=== PATIENT | female | born 1955 | race Caucasian/White ===

== ENCOUNTER 2016-05-05 10:58 | Emergency (ER) | payer BC, OTHER ==
[2016-05-05] MEDS ORDERED: Naproxen TAB* 250 MG PO ONE (11:20)
[2016-05-05] MEDS ORDERED: HYDROcodone/ACETAMIN 5-325 MG* 1 TAB PO ONE (11:37)
--- NOTE | 2016-05-05 12:40 | RAD ---
INDICATION: Fall. Traumatic fracture left wrist COMPARISON: None TECHNIQUE: AP, lateral, and oblique views were obtained. FINDINGS: There is a comminuted, impacted, and displaced intra-articular fracture of the distal radius with dorsal displacement of the carpus. There is soft tissue swelling with deformity. No additional significant findings. IMPRESSION: INTRA-ARTICULAR FRACTURE DISTAL RADIUS WITH IMPACTION, COMMINUTION, AND DORSAL DISPLACEMENT OF THE CARPUS.
--- NOTE | 2016-05-05 12:40 | RAD ---
INDICATION: Left arm injury COMPARISON: None TECHNIQUE: AP and lateral views were obtained. FINDINGS: The lateral radiograph demonstrates no fracture or joint effusion. The AP view is limited due to positioning. The patient has a displaced distal radial fracture. Follow-up imaging of the elbow can be performed if there is persistent concern when the patient is able to tolerate positioning. IMPRESSION: LIMITED STUDY NO ABNORMALITIES OF THE ELBOW SEEN ON THE LATERAL RADIOGRAPH.
--- NOTE | 2016-05-05 12:41 | RAD ---
INDICATION: Left hand pain. COMPARISON: Left wrist same date TECHNIQUE: 2 views are submitted. Positioning is limited as a result of the displaced radial fracture. FINDINGS: There is an intra-articular fracture distal radius described in separate report. There is no acute fracture about the hand. The fingers are held in flexion and therefore evaluation is somewhat limited. IMPRESSION: LIMITED EXAMINATION. NO FRACTURES ABOUT THE HAND. KNOWN DISTAL RADIAL FRACTURE DESCRIBED ELSEWHERE.
[2016-05-05] MEDS ORDERED: Ondansetron ODT TAB* 4 MG PO ONE (12:50)
--- NOTE | 2016-05-10 22:43 | UC ---
Sahra Collins Matthew, scribed for Eileen Palacio MD on 05/05/16 at 1202 . Hand/Wrist HPI - HPI Summary HPI Summary: A 61 y/o female presents to [facility] with left wrist pain after slipping on ice with an out stretched arm while hiking at 08:30 today. The pain is rated 10/10 in severity, described as sharp, and radiates to the hand and elbow. During the fall, the patient's fist was clenched and rolled outward to the side. The patient denies LOC. No pain elsewhere. Denies h/a, neck pain, abd pain, hip pain. No chest pain So abd discomfort Denies local paresthesias. - History Of Current Complaint Chief Complaint: UCUpperExtremity Stated Complaint: WRIST INJURY Time Seen by Provider: 05/05/16 11:36 Hx Obtained From: Patient ?: No Onset/Duration: Sudden Onset, Lasting Hours - 08:30, Still Present Severity Initially: Moderate Severity Currently: Moderate Pain Intensity: 10 Pain Scale Used: 0-10 Numeric Character Of Pain: Sharp Aggravating Factor(s): Movement Alleviating: Nothing - Allergies/Home Medications Allergies/Adverse Reactions: Allergies Allergy/AdvReac Type Severity Reaction Status Date / Time Meperidine [From Demerol HCl] Allergy See Comment Verified 01/01/16 17:39 PMH/Surg Hx/FS Hx/Imm Hx Previously Healthy: Yes Endocrine History Of: Denies: Diabetes Cardiovascular History Of: Denies: Hypertension Respiratory History Of: Reports: Asthma GI/ History Of: Denies: Renal Disease - Surgical History Surgical History: Yes Surgery Procedure, Year, and Place: T&A. hysterectomy. R knee scopy. breast biopsy- benign x2 - Family History Known Family History: Positive: Other - PFH: HTN. - Social History Alcohol Use: Occasionally Substance Use Type: None Smoking Status (MU): Never Smoked Tobacco Have You Smoked in the Last Year: No Review of Systems Constitutional: Negative Skin: Negative Eyes: Negative ENT: Negative Respiratory: Negative Cardiovascular: Negative Gastrointestinal: Negative Genitourinary: Negative Motor: Negative Neurovascular: Negative Musculoskeletal: Arthralgia - left wrist Neurological: Negative Psychological: Negative All Other Systems Reviewed And Are Negative: Yes Physical Exam Triage Information Reviewed: Yes Appearance: Well-Nourished, Pain Distress Vital Signs: Initial Vital Signs Temp 96.7 F 05/05/16 11:04 Resp 24 05/05/16 11:04 Vital Signs Reviewed: Yes Eye Exam: Normal ENT Exam: Normal Neck exam: Normal Respiratory Exam: Normal - No dyspnea; no tachypnea, normal respiratory rate Cardiovascular Exam: Normal - rad and ulcer pp left hand are palpable. + cr < 2 sec x 5 dig LH Cardiovascular: Positive: RRR, Pulses Normal, Brisk Capillary Refill Abdominal Exam: Normal Abdomen Description: Positive: No Organomegaly, Soft Bowel Sounds: Positive: Present Musculoskeletal Exam: Other - Left wrist with obvious deformity. Unable to straighten out elbow 2/2 pain in wrist. Pain does radiate to elbow and hand no neck tenderness Neurological Exam: Normal - non-focal, general grossly intact Distal sens x 5 digits Psychological Exam: Normal - conversing easily and approprately Skin Exam: Normal - no visible or reported rash see above Diagnostics - Radiology Left Hand XR Xray Interpretation: No Acute Changes - IMPRESSION: LIMITED EXAMINATION. NO FRACTURES ABOUT THE HAND. KNOWN DISTAL RADIAL FRACTURE DESCRIBED ELSEWHERE. Radiology Interpretation Completed By: Radiologist Left Elbow XR Xray Interpretation: No Acute Changes - IMPRESSION: LIMITED STUDY NO ABNORMALITIES OF THE ELBOW SEEN ON THE LATERAL RADIOGRAPH. Radiology Interpretation Completed By: Radiologist Left Wrist XR Xray Interpretation: Positive (See Comments) - IMPRESSION: INTRA-ARTICULAR FRACTURE DISTAL RADIUS WITH IMPACTION, COMMINUTION, AND DORSAL DISPLACEMENT OF THE CARPUS. Radiology Interpretation Completed By: Radiologist Hand/Wrist Course/Dx - Course Course Of Treatment: No new problems in CCC. Considered below differential Dx s. Pain was given nsaid at arrival, but still c/o pain. Denies addiction hx. [place] x 2 po given. (pt had toast this am). Reviewed xray report w pt. D/w with Dr. Barber. She will need reduction today. Possible future definitive tx ( pending orthopedic opinion). Ms. Odonnell understandably is very anxious and remains in pain. Will send to ED for associated analgesia with procedure. D/w with JAMAICA Chamorro at ED. Pt offered EMS, but respectfully but firmly declines. AMA for EMS signed. Friend will drive. Immobilization attempted via modified thumb spica for transport. NV - grossly unchanged at time of pt departure. Questions answered to the best of my ability. - Differential Dx/Diagnosis Provider Diagnoses: Comminuted displaced wrist fx left - Physician Notifications Discussed Patient Care With: Dr. Barber (Ortho) at 12:41 -- Notified of patient' s history and will come to [facility] to evaluate the patient. Eileen Wiggins (ED) at 12:55 -- Notified of patient's history and accepts transfer of the patient. Discharge - Discharge Plan Condition: Stable Disposition: ADMITTED TO [facility] Referrals: Eloise Braga MD [Primary Care Provider] - The documentation as recorded by the Sahra grewal Matthew accurately reflects the service I personally performed and the decisions made by , Eileen Palacio MD.
== END 2016-05-05 13:10 | disposition short-term general hospital (02) ==
LOC: UCEAST 10:58
DX: S52.572A Other intraarticular fracture of lower end of left radius, initial encounter for closed fracture (principal); W00.0XXA Fall on same level due to ice and snow, initial encounter; Y93.01 Activity, walking, marching and hiking; Y92.9 Unspecified place or not applicable; Z88.5 Allergy status to narcotic agent
CPT/HCPCS: 99213; A9270-GY; G0463

== ENCOUNTER 2016-05-05 13:36 | Emergency (ER) | payer BC ==
[2016-05-05] MEDS ORDERED: Morphine INJ* 10 MG/ML 1 ML CARPUJECT IV ONE (14:09)
--- NOTE | 2016-05-05 14:21 | ED ---
Upper Extremity Pain - HPI Summary HPI Summary: 61 y/o female with FOOSH, fell with fingers curled up into glove. immediate pain over L wrist, radiating into L elbow. WEnt to urgent care, x-rays= radial fracture, discussed with Dr. Barber, sent to ER for sedation, reduction. Patient states pain 10/10 with movement 9/10 at rest. no h/o osteopenia/ osteoporosis. h/o fracture of elbow in paast, no prior wrist injuries. PMH- allergies, Meds- Clarinex, zyrtec. patient able to move fingers slightly however ++ increased pain + swelling. Denies SOB, chest pain - History of Current Complaint Chief Complaint: EDExtremityUpper Stated Complaint: LT WRIST INJURY Time Seen by Provider: 05/05/16 13:57 Hx Obtained From: Patient, Family/Record Press Tender - friend Mechanism Of Injury: Fall From A Standing Position Onset/Duration: Started Hours Ago - 11AM, Traumatic, Still Present Timing: Constant, Lasting Hours Severity Initially: Moderate Severity Currently: Severe Pain Location: Elbow, Forearm, Wrist, Hand Character: Sharp, Dull, Aching Aggravating Factor(s): Movement, Lifting, Flexion, Extension, Internal/External Rotation, Abduction, Adduction Alleviating Factor(s): Rest, Ice Associated Signs & Symptoms: Positive: Swelling, Bruising, Weakness - Allergies/Home Medications Allergies/Adverse Reactions: Allergies Allergy/AdvReac Type Severity Reaction Status Date / Time Meperidine [From Demerol HCl] Allergy See Comment Verified 01/01/16 17:39 PMH/Surg Hx/FS Hx/Imm Hx Previously Healthy: Yes Endocrine/Hematology History: Denies: Hx Diabetes Cardiovascular History: Denies: Hx Hypertension Respiratory History: Reports: Hx Asthma History: Denies: Hx Renal Disease - Cancer History Hx Chemotherapy: No Hx Radiation Therapy: No - Surgical History Surgery Procedure, Year, and Place: T&A. hysterectomy. R knee scopy. breast biopsy- benign x2 Infectious Disease History: Yes Infectious Disease History: Denies: Hx Clostridium Difficile, Hx Hepatitis, Hx Human Immunodeficiency Virus (HIV), Hx of Known/Suspected MRSA, Hx Shingles, Hx Tuberculosis, Hx Known/ Suspected VRE, Hx Known/Suspected VRSA, History Other Infectious Disease, Traveled Outside the [place] in Last 30 Days - Family History Known Family History: Positive: Other - PFH: HTN. Family History: NON CONTRIBUTORY - Social History Alcohol Use: Occasionally Substance Use Type: Reports: None Smoking Status (MU): Never Smoked Tobacco Have You Smoked in the Last Year: No Review of Systems Constitutional: Negative Eyes: Negative ENT: Negative Cardiovascular: Negative Respiratory: Negative Gastrointestinal: Negative Genitourinary: Negative Positive: Arthralgia, Myalgia, Decreased ROM, Edema Positive: Bruising Neurological: Negative Psychological: Normal All Other Systems Reviewed And Are Negative: Yes Physical Exam Triage Information Reviewed: Yes Vital Signs On Initial Exam: Initial Vitals Temp Pulse Resp BP Pulse Ox 98.9 F 72 15 143/67 100 05/05/16 13:48 05/05/16 13:48 05/05/16 13:48 05/05/16 13:48 05/05/16 13:48 Vital Signs Reviewed: Yes Appearance: Positive: Well-Appearing, Well-Nourished, Pain Distress - mild to severe Skin: Positive: Warm, Skin Color Reflects Adequate Perfusion Head/Face: Positive: Normal Head/Face Inspection Eyes: Positive: Normal, EOMI Cardiovascular: Positive: Pulses are Symmetrical in both Upper and Lower Extremities - radial/ ulnar pulses 2+ b/l, S1, S2 Musculoskeletal: Positive: Pain @ - l wrist diffusely, Other - After medication , patient able to move all L digits in all directions minimally Cap refill <2 seconds all L digits. sensation to light touch intact throughout L hand. Diffuse tenderness to light touch over wrist, hand. Neurological: Positive: Normal, Sensory/Motor Intact, Alert, Oriented to Person Place, Time, CN Intact II-III, Normal Gait, Other - sensation intact to light touch over L hand/ wrist. thumb unable to abd, + add/flexion, unable to assess opposition. Cap refill <2+ all digits. Psychiatric: Positive: Normal, Anxious Diagnostics - Vital Signs Vital Signs Temp Pulse Resp BP Pulse Ox 05/05/16 13:48 98.9 F 72 15 143/67 100 - Laboratory Lab Statement: Any lab studies that have been ordered have been reviewed, and results considered in the medical decision making process. Course/Dx - Course Course Of Treatment: Ortho consult- Dr. Barber reduced the wrist under conscious sedation with good results, follow up with Dr Barber on thurs, pain medication given. - Diagnoses Differential Diagnosis/HQI/PQRI: Positive: Contusion, Fracture (Open), Fracture (Closed) Provider Diagnoses: Fracture of distal end of left radius Discharge - Discharge Plan Condition: Stable Disposition: HOME Prescriptions: Docusate CAP* [Colace Cap*] 100 mg PO BID #60 cap oxyCODONE TAB* [Roxycodone TAB 5 mg*] 5 mg PO Q4H PRN #60 tab MDD 12 PRN Reason: Pain Patient Education Materials: Wrist Fracture in Adults (ED) Forms: *Work Release Referrals: Eloise Barga MD [Primary Care Provider] - Laquita Barber MD [Medical Doctor] - (05/09/2016 ) Additional Instructions: - Do not get splint wet - Follow up with Dr. Barber on , call Friday for appointment - Oxycodone as needed for moderate to severe pain, tylenol/ motrin as needed for mild to moderate pain - Colace to prevent constipation - Increase fluids - Return to ER with decreased sensation/tingling, cool feeling fingers, increased pain, shortness of breath or chest pain
[2016-05-05] MEDS ORDERED: fentaNYL* 50 MCG/ML 2 ML VIAL (100 MCG VIAL) IV SLOW PU ONE (14:54)
[2016-05-05] MEDS ORDERED: Midazolam* 1 MG/ML 2 ML VIAL (2 MG) IV ONE (14:54)
[2016-05-05] MEDS ORDERED: fentaNYL* 50 MCG/ML 2 ML VIAL (100 MCG VIAL) ONE (14:56)
[2016-05-05] MEDS ORDERED: Midazolam* 1 MG/ML 10 ML VIAL (10 MG) ONE (14:57)
[2016-05-05] MEDS ORDERED: Flumazenil* 0.1 MG/ML 5 ML MDV ONE (15:06)
--- NOTE | 2016-05-05 15:35 | RAD ---
INDICATION: Traumatic fracture left wrist-closed reduction COMPARISON: None TECHNIQUE: AP, lateral, and oblique views were obtained. FINDINGS: There is closed reduction. The distal radial fracture fragments are in good position and alignment. The bony detail is obscured in part by casting material. IMPRESSION: ] CLOSED REDUCTION
[2016-05-05 16:34] VITALS: BP 119/77
--- NOTE | 2016-05-05 17:15 | ED ---
IEdu Erika, scribed for Frankie Desouza MD on 05/05/16 at 1504 . Progress - Progress Note Progress Note: Assisting JAMAICA Chamorro. The patient is a 61 y/o F with a distal radius fracture. Dr. Barber requested conscious sedation. I spoke with the patient who states she understands the risks and benefits of conscious sedation. She signed the consent form. We will use fentanyl and versed for conscious sedation. Patient tolerated well conscious sedation and reduction was done by Dr. Barber. Now patient is feeling better and she is alert and oriented x 3. She is hemodaynamically stable. Course/Dx - Diagnoses Provider Diagnoses: Fracture of distal end of left radius The documentation as recorded by the rhiannonibeEdu Erika accurately reflects the service I personally performed and the decisions made by me, Frankie Desouza MD.
--- NOTE | 2016-05-05 21:09 | CONS ---
CONSULTATION: DATE OF CONSULT: 05/05/16 - EMERGENCY DEPT CHIEF COMPLAINT: Left wrist pain and deformity. HISTORY OF PRESENT ILLNESS: Jaylin is a 61-year-old woman who was hiking. She slipped on the ice and fell onto her outstretched left hand. She has an obvious deformity of her wrist. X-ray shows a comminuted intraarticular fracture of the distal radius with marked displacement. The patient denies other injury. X-rays of the elbow and hand were negative. PHYSICAL EXAM: She is a healthy-appearing, pleasant woman, in moderate distress at rest. She has an obvious deformity of her left wrist with an extension deformity proximal to the joint. She has intact sensation in the fingers, has great difficulty moving her fingers secondary to pain. Skin is intact. IMPRESSION: Left distal radius fracture, comminuted and displaced. PLAN: The patient was given conscious sedation by Dr. Desouza. Hematoma block was given after sterile prep with 10 cc of 1% plain lidocaine. The fracture was then manipulated and reduced and placed in a sugar-tong splint, well molded in flexion and ulnar deviation. Postreduction x-rays showed anatomic alignment of the fracture fragments. The patient was instructed to ice, elevate, use a sling, given a note to be out of work, given a prescription for pain medicine and advised to follow up with Dr. Barber in 5 days. Call for any problems such as numbness, tingling, uncontrolled pain, or swelling. [id number]/[facility] #: [id number] MTDD
== END 2016-05-05 16:34 | disposition home or self-care (01) ==
LOC: ED 13:36
DX: S52.502A Unspecified fracture of the lower end of left radius, initial encounter for closed fracture (principal); W00.0XXA Fall on same level due to ice and snow, initial encounter; Y93.01 Activity, walking, marching and hiking; Y92.9 Unspecified place or not applicable
CPT/HCPCS: 25605; 96374; 96375; 99213; 99285; A9270-GY; G0463; J2250; J2270; J3010

== ENCOUNTER 2018-09-15 16:53 | Emergency (ER) | payer BC ==
[2018-09-15 17:12] VITALS: BP 129/74
--- NOTE | 2018-09-15 18:49 | UC ---
[facility] HPI - HPI Summary HPI Summary: 63 y/o female presents to the urgent care c/o RT upper jaw pain w/ swelling since yesterday. She has a molar w/ cavity w/ some swelling around it. Pain w/ chewing is 8/10. Pt has been taken Naproxen PO to alleviate symptoms. Pt denies fever, trismus, BOWDEN, dizziness, chest pain, dizziness, sore throat, abdominal pain, N/v/d. She thinks she has an molar abscess. - History of Current Complaint Chief Complaint: UCDentalProblem Stated Complaint: DENTAL PAIN Time Seen by Provider: 09/15/18 18:48 Hx Obtained From: Patient Onset/Duration: Gradual Onset, Lasting Days - 1 day, Still Present, Worse Since - this morning Severity: Moderate Pain Intensity: 5 Pain Scale Used: 0-10 Numeric Aggravating Factor(s): Chewing Alleviating Factor(s): OTC Meds - Allergies/Home Medications Allergies/Adverse Reactions: Allergies Allergy/AdvReac Type Severity Reaction Status Date / Time meperidine Allergy See Comment Verified 09/15/18 17:13 PMH/Surg Hx/FS Hx/Imm Hx Previously Healthy: Yes - Pt denies PMHX - Surgical History Surgical History: Yes Surgery Procedure, Year, and Place: T&A. hysterectomy. R knee scopy. breast biopsy- benign x2 - Family History Known Family History: Positive: Hypertension, Other - PFH: HTN. Family History: NON CONTRIBUTORY - Social History Occupation: Employed Full-time Lives: With Family Alcohol Use: None Substance Use Type: None Smoking Status (MU): Never Smoked Tobacco Have You Smoked in the Last Year: No Review of Systems All Other Systems Reviewed And Are Negative: Yes Constitutional: Positive: Negative Skin: Positive: Negative Eyes: Positive: Negative ENT: Positive: Dental Pain - Rt upper jaw molar pain Respiratory: Positive: Negative Cardiovascular: Positive: Negative Gastrointestinal: Positive: Negative Genitourinary: Positive: Negative Motor: Positive: Negative Neurovascular: Positive: Negative Musculoskeletal: Positive: Negative Neurological: Positive: Negative Psychological: Positive: Negative Is Patient Immunocompromised?: No Physical Exam - Summary Physical Exam Summary: Vital Signs Reviewed: Yes General: Well-Appearing, Well-Nourished female sitting in the examining table w /o any respiratory or pain distress Eyes: Positive: Conjunctiva Clear - PERRLA, EOMI, ENT: Positive: Normal ENT inspection, Hearing grossly normal, Pharynx normal, TMs normal - B/L external ear canals clear,. Negative: Tonsillar swelling, Tonsillar exudate, Trismus Dental: Positive: Gross Decay/Caries on molars #4 w/ gingival swelling and erythema, tender to percussion. involves tissue surrounding theses molars, w/ positive anterior Cervical Lymphadenopathy. Neck: Positive: Supple Respiratory: Positive: Chest non-tender, Lungs clear, Normal breath sounds, No respiratory distress Cardiovascular: Positive: RRR, No Murmur, Pulses Normal, Brisk Capillary Refill Abdomen Description: Positive: Nontender, No Organomegaly, Soft. Negative: CVA Tenderness (R), CVA Tenderness (L) Bowel Sounds: Positive: Present Musculoskeletal: Positive: Strength Intact, ROM Intact, No Edema Neurological Exam: Normal Psychological Exam: Normal Skin Exam: Normal Triage Information Reviewed: Yes Vital Signs: Initial Vital Signs Temp 98 F 09/15/18 17:08 Pulse 65 09/15/18 17:08 Resp 12 09/15/18 17:08 BP 129/74 09/15/18 17:08 Pulse Ox 100 09/15/18 17:08 Dental Complaint Course/Dx - Course Course Of Treatment: 63 y/o female presents to the urgent care c/o RT upper jaw pain w/ swelling since yesterday. She has a molar w/ cavity w/ some swelling around it. Pain w/ chewing is 8/10. Pt has been taken Naproxen PO to alleviate symptoms. Pt denies fever, trismus, BOWDEN, dizziness, chest pain, dizziness, sore throat, abdominal pain, N/v/d. She thinks she has an molar abscess. Hx obtained. Pt with dental abscess around molar # 4 w/ cross decay on examination. Pt given viscous Lidocaine at the clinic to alleviate symptoms by the nurse. Pt Rx Clindamycin PO and Ibuprofen PO and viscous Lidocaine directed below. Advised to continue Pt strongly advised to f/u with Dentist as soon as possible further evaluation and treatment. D/C instructions explained. Mother and Pt understood and agreed with plan of care. - Differential Dx/Diagnosis Differential Diagnosis/Dx: Dental Abscess, Fractured Tooth, Odontogenic Pain, Peridontic Disease Provider Diagnosis: Dental abscess Discharge - Sign-Out/Discharge Documenting (check all that apply): Patient Departure - d/C home All imaging exams completed and their final reports reviewed: No Studies - Discharge Plan Condition: Stable Disposition: HOME Prescriptions: Clindamycin Cap(NF) [Clindamycin Cap 300 mg Cap(NF)] 300 mg PO TID #30 cap Ibuprofen TAB* [Motrin TAB* 800 MG] 800 mg PO Q6H PRN #30 tab PRN Reason: dental pain Lidocaine 2% VISCOUS* [Xylocaine 2% Viscous*] 15 ml SWISH SPIT Q6H PRN #1 btl PRN Reason: dental pain Patient Education Materials: Dental Abscess (ED) Referrals: Regis Perez DO [Primary Care Provider] - 2 Days Additional Instructions: 1-Please take full course of antibiotic to avoid resistance. Take yogurt w/ probiotics of Culturelle to protect your GI system 2- Take Ibuprofen PO q6-8hrs prn as instructed after meals to alleviate pain and swelling. Take the Viscous lidocaine ad directed to alleviate symptoms 3- F/u with your Dentist or Dental List provided as soon as possible for further treatment. 4- If symptoms do not improve or worsen please f/u with your PCP for further evaluation and treatment - Billing Disposition and Condition Condition: STABLE Disposition: Home
[2018-09-15] MEDS: Lidocaine 2% VISCOUS* 15 ML UDC SWISH SPIT ONE (19:13)
== END 2018-09-15 19:32 | disposition home or self-care (01) ==
LOC: UCEAST 16:53
DX: K04.7 Periapical abscess without sinus (principal); Z88.8 Allergy status to other drugs, medicaments and biological substances
CPT/HCPCS: 99212; G0463

== ENCOUNTER 2022-11-29 08:57 | Observation (INO) ==
[2022-11-29 11:50] LABS: ABS Eosinophils 0.1 10^3/uL (0.0-0.5); ABS Lymphocytes 1.1 10^3/uL (1.0-4.8); ABS Monocytes 0.4 10^3/uL (0.0-0.9); ABS Neutrophils 2.1 10^3/uL (1.5-7.6); Eosinophil % 3.4 %; Hematocrit 34.5 % (35-45); Hemoglobin 11.8 g/dL (11.5-14.3); Lymphocyte % 30.3 %; Mean Corpuscular Hgb Conc 34.1 g/dL (31-36); Mean Platelet Volume 7.8 fL (7.5-11.2); Nucleated Red Blood Cells % 0.1 /100 WBC (0.0-0.4); Platelet Count 217 10^3/uL (150-450); Red Blood Count 3.56 10^6/uL (3.63-4.92); Red Cell Distribution Width 14.3 % (12-17); White Blood Count 3.7 10^3/uL (3.8-11.8)
[2022-11-29 12:14] LABS: C Reactive Protein 9.49 mg/L (<8.01); Calcium 9.8 mg/dL (8.6-10.3); Creatinine, Serum 0.71 mg/dL (0.51-0.95); Potassium 3.9 mmol/L (3.5-5.0); eGFR CKD-EPI 93.7 (>60)
[2022-11-29] MEDS: Sulfamethoxazole/Trimeth IV 160 MG in D5W 250 ml BAG 250 ML IVPB SCH (17:18)
[2022-11-29] MEDS: Enoxaparin 40 MG/0.4 ML SYR SUBCUT SCH ×2 (18:46→20:55)
[2022-11-30 05:45] LABS: ABS Eosinophils 0.1 10^3/uL (0.0-0.5); ABS Lymphocytes 1.5 10^3/uL (1.0-4.8); ABS Monocytes 0.4 10^3/uL (0.0-0.9); ABS Neutrophils 1.8 10^3/uL (1.5-7.6); Eosinophil % 3.4 %; Hematocrit 33.9 % (35-45); Hemoglobin 11.5 g/dL (11.5-14.3); Lymphocyte % 39.1 %; Mean Corpuscular Hemoglobin 32.8 pg (27-33); Mean Corpuscular Hgb Conc 33.9 g/dL (31-36); Mean Corpuscular Volume 96.6 fL (80-97); Mean Platelet Volume 8.6 fL (7.5-11.2); Nucleated Red Blood Cells % 0.1 /100 WBC (0.0-0.4); Platelet Count 190 10^3/uL (150-450); Red Blood Count 3.51 10^6/uL (3.63-4.92); Red Cell Distribution Width 14.7 % (12-17); White Blood Count 3.8 10^3/uL (3.8-11.8)
[2022-11-30] MEDS: Sulfamethoxazole/Trimeth IV 160 MG in D5W 250 ml BAG 250 ML IVPB SCH (05:46)
[2022-11-30 06:02] LABS: Calcium 8.8 mg/dL (8.6-10.3); Creatinine, Serum 0.88 mg/dL (0.51-0.95); Magnesium 1.9 mg/dL (1.9-2.7); Phosphorus 3.9 mg/dL (2.5-5.0); Potassium 3.6 mmol/L (3.5-5.0); eGFR CKD-EPI 72.4 (>60)
[2022-11-30] MEDS ORDERED: Mometasone/Formoter 100/5 MDI INH SCH (07:00)
[2022-11-30 07:59] LABS: C Reactive Protein 7.17 mg/L (<8.01)
[2022-11-30 10:22] VITALS: BP 108/58
== END 2022-11-30 11:20 | disposition home or self-care (01) ==
LOC: EDHOLD 08:57 → ED 08:57 → MEDTELE 17:45
PROVIDERS: ADMIT Student in an Organized Health Care Education/Training Program; ATTEND Internal Medicine